=== PATIENT | female | born 1990 | race African-American/Black ===

== ENCOUNTER 2020-08-07 10:30 | Inpatient (IN) | payer MEDICAID ==
[~2020-08-07] VITALS: Ht 160 cm; Wt 77.6 kg
[2020-08-07] MEDS ORDERED: NALOXONE HCL 0.4 MG/ML 1ML VIAL IM PRN (13:30)
[2020-08-07] MEDS ORDERED: LIDOCAINE HCL 1% 20ML VIAL (Pyxis) INJ INFIL SCH (13:30)
[2020-08-07] MEDS ORDERED: METHYLERGONOVINE MALEATE 0.2 MG/ML IM PRN (13:30)
[2020-08-07] MEDS ORDERED: BUTORPHANOL TARTRATE 2 MG/ML VIAL IV PRN (13:30)
[2020-08-07] MEDS ORDERED: RHO(D) IMMUNE GLOBULIN 300 MCG/SYR IM ONE (13:30)
[2020-08-07] MEDS ORDERED: CARBOPROST TROMETHAMINE 250 MCG/ML AMPUL IM PRN (13:30)
[2020-08-07] MEDS ORDERED: MISOPROSTOL 100MCG TABLET VG SCH (13:30)
[2020-08-07] MEDS ORDERED: DEXT 5%/LR + PITOCIN 20UNITS/L 1,000 ML IV SCH (13:30)
[2020-08-07] MEDS ORDERED: PENICILLIN G POTASSIUM 5 MMU in DEXT 5% WATER 100 ML IV SCH (15:00)
[2020-08-07 17:05] LABS: BASOPHILS % 0.5 % (0.0-2.0); EOSINOPHILS % 0.3 % (0.0-5.0); HEMATOCRIT. 23.9 % (36.0-48.0); HEMOGLOBIN. 7.8 g/dL (12.0-16.0); LYMPHOCYTES % 17.9 % (20.0-50.0); MEAN CORPUSCULAR HEMOGLOBIN 20.6 pg (28.0-32.0); MEAN CORPUSCULAR VOLUME 63.2 fL (81.0-99.0); MEAN PLATELET VOLUME 7.7 fl (7.4-10.4); MONOCYTES % 9.9 % (2.0-8.0); NEUTROPHILS % 71.4 % (40.0-76.0); PLATELET 262 x1000/uL (130-400); RED BLOOD CELL COUNT 3.78 mill/uL (4.2-5.4); RED CELL DISTRIBUTION WIDTH 18.8 % (11.6-14.6)
[2020-08-07 17:09] LABS: CLARITY URINE CLOUDY (CLEAR); COLOR URINE DARK YELLOW (YELLOW); KETONES URINE NEGATIVE (NEGATIVE); LEUKOCYTE ESTERASE URINE 2+ (NEGATIVE); NITRITE URINE NEGATIVE (NEGATIVE); OCCULT BLOOD URINE NEGATIVE (NEGATIVE); PROTEIN URINE TRACE (NEGATIVE); SPECIFIC GRAVITY URINE 1.018 (1.005-1.030)
[2020-08-07 17:15] LABS: INR 1.1; PROTHROMBIN TIME 11.4 sec (9.6-11.0)
[2020-08-07 17:24] LABS: *AMPHETAMINES SCREEN URINE NEGATIVE (NEGATIVE); *BARBITURATES SCREEN URINE NEGATIVE (NEGATIVE); *BENZODIAZEPINES SCREEN URINE NEGATIVE (NEGATIVE); *COCAINE SCREEN URINE NEGATIVE (NEGATIVE); OPIATES URINE SCREEN NEGATIVE (NEGATIVE)
[2020-08-07 17:25] LABS: CANNABINOID URINE SCREEN NEGATIVE (NEGATIVE); PHENCYCLIDINE URINE SCREEN NEGATIVE (NEGATIVE)
[2020-08-07 17:27] LABS: METHADONE URINE SCREEN NEGATIVE (NEGATIVE)
[2020-08-07] MEDS: LACTATED RINGERS 1,000 ML IV SCH (17:38)
[2020-08-07 17:45] LABS: HEPATITIS B SURFACE ANTIGEN NEGATIVE
[2020-08-07 17:46] LABS: PLATELET ESTIMATE NORMAL
[2020-08-07] MEDS: PENICILLIN G POTASSIUM 2.5 MMU in DEXTROSE 5% WATER 50 ML IV SCH (21:37)
[2020-08-08] MEDS ORDERED: ROPIVACAINE HCL/PF EPIDURAL 200 ML EPI ONE (00:30)
[2020-08-08] MEDS: LACTATED RINGERS 1,000 ML IV SCH (01:20)
[2020-08-08] MEDS ORDERED: ROPIVACAINE HCL/PF EPIDURAL 200 ML EPI SCH (01:30)
[2020-08-08] MEDS: PENICILLIN G POTASSIUM 2.5 MMU in DEXTROSE 5% WATER 50 ML IV SCH (02:46)
[2020-08-08] MEDS ORDERED: SODIUM CHLORIDE 0.9% 1,000 ML IR NR (04:15)
[2020-08-08] MEDS ORDERED: GLYCERIN/WITCH HAZEL LEAF MEDICATED PAD TOP PRN (05:30)
[2020-08-08] MEDS ORDERED: DEXT 5%/LR + PITOCIN 20UNITS/L 1,000 ML IV SCH (05:30)
[2020-08-08] MEDS ORDERED: HEMORRHOIDAL SUPP PR PRN (05:30)
[2020-08-08] MEDS ORDERED: LANOLIN OINT 7GM TUBE TOP PRN (05:30)
[2020-08-08] MEDS ORDERED: DIPHENHYDRAMINE 25MG CAPSULE PO PRN (05:30)
[2020-08-08] MEDS ORDERED: BISACODYL 10MG SUPP PR PRN (05:30)
[2020-08-08] MEDS ORDERED: BENZOCAINE/LANOLIN/ALOE VERA SPRAY TOP PRN (05:30)
[2020-08-08] MEDS ORDERED: IBUPROFEN 400MG TABLET PO PRN (05:30)
[2020-08-08 08:00] VITALS: BP 141/93
[2020-08-08] MEDS: SIMETHICONE 80MG TABLET CHEW PO SCH ×2 (08:00→20:32)
[2020-08-08 08:30] VITALS: BP 127/77
[2020-08-08] MEDS: IBUPROFEN 800MG TABLET PO PRN ×2 (08:58→20:32)
[2020-08-08] MEDS: PRENATAL VIT/FE FUMARATE/FA TABLET PO SCH (08:58)
[2020-08-08 11:00] VITALS: BP 129/89
[2020-08-08] MEDS: ACETAMINOPHEN WITH CODEINE 300/30MG TABLET PO PRN (16:01)
[2020-08-08 17:14] VITALS: BP 127/87
[2020-08-08 20:00] VITALS: BP 130/88
[2020-08-08] MEDS: DOCUSATE SODIUM 100MG CAPSULE PO SCH (21:00)
[2020-08-09 04:15] VITALS: BP 130/87
[2020-08-09 07:30] VITALS: BP 127/82
[2020-08-09 07:48] LABS: BASOPHILS % 0.6 % (0.0-2.0); EOSINOPHILS % 1.1 % (0.0-5.0); LYMPHOCYTES % 18.4 % (20.0-50.0); MEAN CORPUSCULAR HEMOGLOBIN 19.7 pg (28.0-32.0); MEAN CORPUSCULAR VOLUME 63.5 fL (81.0-99.0); MEAN PLATELET VOLUME 8.2 fl (7.4-10.4); MONOCYTES % 11.1 % (2.0-8.0); NEUTROPHILS % 68.8 % (40.0-76.0); PLATELET 211 x1000/uL (130-400); RED BLOOD CELL COUNT 2.93 mill/uL (4.2-5.4); RED CELL DISTRIBUTION WIDTH 18.7 % (11.6-14.6)
[2020-08-09 08:12] LABS: HEMOGLOBIN. 5.8 g/dL (12.0-16.0)
[2020-08-09 08:13] LABS: HEMATOCRIT. 18.6 % (36.0-48.0)
[2020-08-09] MEDS: IBUPROFEN 800MG TABLET PO PRN (09:58)
[2020-08-09] MEDS: PRENATAL VIT/FE FUMARATE/FA TABLET PO SCH (09:58)
[2020-08-09] MEDS: FERROUS SULFATE 325MG TABLET PO SCH ×3 (09:58→18:43)
[2020-08-09] MEDS: ACETAMINOPHEN WITH CODEINE 300/30MG TABLET PO PRN (14:25)
[2020-08-09 17:24] VITALS: BP 130/72
[2020-08-09 20:30] VITALS: BP 134/90
[2020-08-09] MEDS: SIMETHICONE 80MG TABLET CHEW PO SCH (21:02)
[2020-08-09] MEDS: DOCUSATE SODIUM 100MG CAPSULE PO SCH (21:02)
[2020-08-10] MEDS ORDERED: IBUP-2030 PO (03:45)
[2020-08-10] MEDS ORDERED: DOCU-150 PO (03:45)
[2020-08-10] MEDS ORDERED: PEDI0.2517 MT (03:45)
[2020-08-10] MEDS ORDERED: FERR325T23 PO (03:45)
[2020-08-10 04:15] VITALS: BP 118/70
[2020-08-10 07:12] LABS: MEAN CORPUSCULAR HEMOGLOBIN 19.7 pg (28.0-32.0); PLATELET 207 x1000/uL (130-400); RED BLOOD CELL COUNT 2.83 mill/uL (4.2-5.4); RED CELL DISTRIBUTION WIDTH 18.9 % (11.6-14.6)
[2020-08-10 07:53] LABS: HEMATOCRIT 18.1 % (36.0-48.0); HEMOGLOBIN 5.6 g/dL (12.0-16.0)
[2020-08-10] MEDS: FERROUS SULFATE 325MG TABLET PO SCH (08:29)
[2020-08-10 08:30] VITALS: BP 118/70
[2020-08-10] MEDS: SIMETHICONE 80MG TABLET CHEW PO SCH (08:30)
[2020-08-10] MEDS: IBUPROFEN 800MG TABLET PO PRN (08:30)
== END 2020-08-10 11:30 | disposition home or self-care (01) | DRG 560 ==
LOC: OBSVTOIN 10:30 → 8 EST LDRP 10:30 → 8EST 08-08 09:39
PROVIDERS: ADMIT Specialist; ATTEND Specialist
PROC: 10E0XZZ Delivery of Products of Conception, External Approach (ICD-10-PCS; principal; 2020-08-08)
PROC: 0HQ9XZZ Repair Perineum Skin, External Approach (ICD-10-PCS; 2020-08-08)
PROC: 3E0R3BZ Introduction of Anesthetic Agent into Spinal Canal, Percutaneous Approach (ICD-10-PCS; 2020-08-08)
PROC: 00HU33Z Insertion of Infusion Device into Spinal Canal, Percutaneous Approach (ICD-10-PCS; 2020-08-08)
DX: O99.02 Anemia complicating childbirth (principal); D62 Acute posthemorrhagic anemia; O99.12 Other diseases of the blood and blood-forming organs and certain disorders involving the immune mechanism complicating childbirth; O69.81X0 Labor and delivery complicated by cord around neck, without compression, not applicable or unspecified; O99.824 Streptococcus B carrier state complicating childbirth; Z37.0 Single live birth; D72.829 Elevated white blood cell count, unspecified; Z3A.37 37 weeks gestation of pregnancy; O70.0 First degree perineal laceration during delivery
CPT/HCPCS: 36415; 80305; 81003; 85025; 85027; 86592; 86703; 86762; 86850; 86900; 87340; G0378; J2540; J2590; J2795; J7060; J7120; A4315